=== PATIENT | female | born 1990 | race Caucasian/White ===

== ENCOUNTER 2016-02-09 23:43 | Emergency (ER) | payer MEDICAID ==
[2016-02-09] MEDS ORDERED: OPTIRAY 350 100 ML VIAL HMH IV ONE (23:44)
[2016-02-10] MEDS ORDERED: ONDANSETRON 4 MG VIAL ONE (06:20)
[2016-02-10] MEDS ORDERED: SODIUM CHLORIDE 0.9% 1,000 ML ONE (06:21)
[2016-02-10] MEDS ORDERED: MORPHINE 4 MG/ML SYR ONE (06:21)
[2016-02-10] MEDS ORDERED: DICYCLOMINE 20MG/2ML VIAL IM ONE (06:46)
== END 2016-02-10 08:28 | disposition home or self-care (01) ==
LOC: ER 23:43
CPT/HCPCS: 74177; 96361; 96372; 96374; 96375